=== PATIENT | female | born 1990 | race Caucasian/White ===

== ENCOUNTER → 2017-03-20 | Outpatient (CLI) | payer BC, MEDICAID ==
[~2017-03-20] MED LIST: ACHD5005 PO; CEPH250T; CEPH500C PO; FRS325T PO; HYDR-707 PO; IBP600T1 PO; PREN1TAB38 PO; PREN1TAB39 PO; SULF1TAB35 PO
--- NOTE | 2017-03-20 16:13 | Diagnostic Imaging Report ---
INDICATION: assessment. TECHNIQUE: Multiple real-time grayscale images were obtained over the gravid uterus. COMPARISON: None. FINDINGS: Ultrasonography reveals brower intrauterine gestation in variable presentation. The placenta is anterior without evidence of previa. cardiac activity is present with a rate of 155 beats per minute. No anomalies identified on anatomic survey although the four-chamber heart view is not well demonstrated due to positioning. Cervical length is 5.3 cm. Biometry indicates gestational age of 20 weeks and 4 days. Biometrical measurements are as follows: Biparietal 4.7 cm, age 20 weeks 2 days. Head circumference 17.72 cm, age 20 weeks 2 days. Abdominal circumference 15.54 cm, age 20 weeks 5 days. Femur length 3.36 cm, age 20 weeks 4 days. Sonographic estimate age: 20 weeks 4 days. Sonographic estimated date of delivery: 08/03/2016. Estimated Weight: 363 gm (+/- 53 gm). LMP percentile: 11%. heart rate: 155 beats per minute. number: 1 of 1. IMPRESSION: Essentially unremarkable obstetrical ultrasound. Estimated gestational age is 20 weeks and 4 days. Sonographic EDC based on current measurements is 07/28/2017. Dictated by: Dictated on workstation # [id number]
== END ==
LOC: RAD 15:31
PROVIDERS: ATTEND Obstetrics & Gynecology
DX: Z36 Encounter for antenatal screening of mother (principal); Z3A.20 20 weeks gestation of pregnancy
CPT/HCPCS: 76805

== ENCOUNTER 2017-07-13 13:54 | Outpatient (CLI) | payer MEDICAID ==
[~2017-07-13] VITALS: Ht 160 cm; Wt 78.6 kg
[2017-07-13 14:05] VITALS: BP 117/76
== END 2017-07-13 14:35 | disposition home or self-care (01) ==
LOC: PREOP 13:54
PROVIDERS: ATTEND Obstetrics & Gynecology
DX: Z01.818 Encounter for other preprocedural examination (principal); O34.211 Maternal care for low transverse scar from previous cesarean delivery
CPT/HCPCS: 87081

== ENCOUNTER 2017-07-21 08:00 | Inpatient (IN) | payer BC, MEDICAID ==
[~2017-07-21] VITALS: Ht 160 cm; Wt 74.9 kg
[2017-07-21] MEDS ORDERED: LACTATED RINGERS 1,000 ML IV ONE (10:51)
[2017-07-21 11:00] VITALS: BP 119/79
--- OUTSIDE RECORDS SUMMARY | 2017-07-21 11:06 | XMS REPORT ---
Author Author VALDEZ THOMAS [facility] Address [address] [place] [address] Care Team Providers Care Cd Storage And Materials Make Up Helper Name Role Phone VALDEZ THOMAS Unavailable PROBLEMS Type Condition ICD9-CM Code HER53-XT Code Onset Dates Condition Status SNOMED Code Assessment Dysthymia F34.1 Mar, Active 17559461 ALLERGIES Substance Reaction Event Type Date Status Biaxin Unknown Drug Allergy Mar, Active SOCIAL HISTORY No smoking Hx information available PLAN OF CARE VITAL SIGNS MEDICATIONS No Known Medications RESULTS No Results PROCEDURES Procedure Date Ordered Related Diagnosis Body Site Psych diagnostic evaluation, new patient Apr 13, 2016 IMMUNIZATIONS No Known Immunizations
--- OUTSIDE RECORDS SUMMARY | 2017-07-21 11:06 | XMS REPORT | Continuity of Care Document ---
Author Author [facility] Organization [facility] Address Unknown Phone Unavailable Allergies Active Description Code Type Severity Reaction Onset Reported/Identified Relationship to Patient Clinical Status Yes clarithromycin [id number] Drug Allergy Mild N/A 07/05/2009 Yes Biaxin Drug Allergy 11/05/2012 Yes Biaxin Drug Allergy N/A N/A 11/05/2012 Yes Penicillins [id number] Drug Allergy Unknown N/A 10/19/2014 Medications There is no data. Problems Date Dx Coded Attending Type Code Diagnosis Diagnosed By 11/05/2012 BRAYDON TORREZ ROSI A 640.00 THREATENED 11/05/2012 BRAYDONILIANA TORREZ ROSI A V72.42 TEST POSITIVE RESULT 11/05/2012 BRAYDONILIANA TORREZ, ROSI A 640.00 THREATENED 11/05/2012 BRAYDON PEST CONTROL WORKER HELPER, ROSI A V72.42 TEST POSITIVE RESULT 11/05/2012 640.00 THREATENED 11/05/2012 V72.42 TEST POSITIVE RESULT 11/05/2012 BRAYDON PEST CONTROL WORKER HELPER, ROSI A 640.00 THREATENED 11/05/2012 BRAYDON PEST CONTROL WORKER HELPER, ROSI A V72.42 TEST POSITIVE RESULT 11/05/2012 COTTO DO, MALINDA K 640.00 THREATENED 11/05/2012 COTTO DO, MALINDA K V72.42 TEST POSITIVE RESULT 11/05/2012 COTTO DO, MALINDA K 640.00 THREATENED 11/05/2012 COTTO DO, MALINDA K V72.42 TEST POSITIVE RESULT 11/05/2012 COTTO DO, MALINDA K 640.00 THREATENED 11/05/2012 COTTO DO, MALINDA K V72.42 TEST POSITIVE RESULT 12/20/2012 V22.1 , NORMAL OTHER 12/20/2012 BRAYDONILIANA TORREZ ROSI A V22.1 , NORMAL OTHER 12/20/2012 COTTO DO, MALINDA K V22.1 , NORMAL OTHER 12/20/2012 COTTO DO, MALINDA K V22.1 , NORMAL OTHER 12/20/2012 COTTO , MALINDA K V22.1 , NORMAL OTHER 06/23/2013 BRENNA MONCADA REHAN C Ot 285.1 AC POSTHEMORRHAG ANEMIA 06/23/2013 BRENNA MONCADA REHAN C Ot 288.60 LEUKOCYTOSIS, UNSPECIFIED 06/23/2013 BRENNA MONCADA REHAN C Ot 646.81 PREG COMPL NEC-DELIVERED 06/23/2013 BRENNA MONCADAREHAN C Ot 648.22 ANEMIA-DELIVERED W P/P 06/23/2013 BRENNA MONCADA REHAN C Ot 652.21 BREECH PRESENTAT-DELIVER 06/23/2013 BRENNA MONCADA REHAN C Ot V04.81 ND FOR PROPHYLACTIC VACCIN AND INOCULATI 06/23/2013 BRENNA MONCADAREHAN Ot V27.0 DELIVER-SINGLE LIVEBORN 09/05/2013 ROSI BRYSON APRN A V25.09 CONTRACEPTIVE COUNSELING - GENERAL 09/05/2013 ROSI BRYSON APRN V25.9 CONTRACEPTION MANAGEMENT 09/05/2013 KIRTI MONCADA MALINDA K V25.09 CONTRACEPTIVE COUNSELING - GENERAL 09/05/2013 COTTO DO, MALINDA K V25.9 CONTRACEPTION MANAGEMENT 09/05/2013 COTTO DO, MALINDA K V25.09 CONTRACEPTIVE COUNSELING - GENERAL 09/05/2013 COTTO DO, MALINDA K V25.9 CONTRACEPTION MANAGEMENT 09/05/2013 COTTO DO, MALINDA K V25.09 CONTRACEPTIVE COUNSELING - GENERAL 09/05/2013 COTTO DO, MALINDA K V25.9 CONTRACEPTION MANAGEMENT 11/28/2013 COTTO DO MALINDA K 692.2 CONTACT DERMATITIS AND OTHER ECZEMA DUE TO SOLVENTS 11/28/2013 COTTO DO, MALINDA K V01.6 CONTACT WITH OR EXPOSURE TO VENEREAL DISEASES 11/28/2013 COTTO DO, MALINDA K V74.5 STD SCREEN 11/28/2013 COTTO DO, MALINDA K 692.2 CONTACT DERMATITIS AND OTHER ECZEMA DUE TO SOLVENTS 11/28/2013 COTTO DO, MALIDNA K V01.6 CONTACT WITH OR EXPOSURE TO VENEREAL DISEASES 11/28/2013 COTTO DO, MALINDA K V74.5 STD SCREEN 11/28/2013 COTTO DO, MALINDA K 692.2 CONTACT DERMATITIS AND OTHER ECZEMA DUE TO SOLVENTS 11/28/2013 COTTO DO, MALINDA K V01.6 CONTACT WITH OR EXPOSURE TO VENEREAL DISEASES 11/28/2013 KIRTI MONCADAMALINDA V74.5 STD SCREEN 03/01/2014 COTTO MALINDA V74.1 TB SCREENING 03/01/2014 KIRTI MONCADAMALINDA V74.1 TB SCREENING 10/19/2014 ROSI BRYSON APRN Ot V22.1 10/19/2014 SABINE HO DO Ot 462 ACUTE PHARYNGITIS 10/19/2014 SABINE HO DO Ot 780.60 FEVER, UNSPECIFIED 10/19/2014 ROSI BRYSON APRN Ot V22.1 10/25/2014 MALINDA COTTO DO 461.9 SINUSITIS ACUTE 03/20/2017 ROSI BRYSON APRN Ot V22.1 [facility] OT NORMAL PREG 04/04/2017 REHAN CEJA DO, Ot Z36 ENCOUNTER FOR SCREENING OF MOT 04/04/2017 REHAN CEJA DO, Ot Z3A.20 20 WEEKS GESTATION OF Procedures Code Description [place] [address] PAP SMEAR 12/13/2011 13094 URINE TEST (IN- HOUSE) 11/05/2012 60318 HCG QUANTITATIVE 11/06/2012 97272 ROUTINE VENIPUNCTURE 11/07/2012 15116 HCG QUANTITATIVE 11/08/2012 63834 BLOOD TYPE/Rh FACTOR 11/08/2012 42667 ROUTINE VENIPUNCTURE 12/20/2012 63645 CBC 12/20/2012 72231 TSH 12/20/2012 72330 BLOOD TYPE/Rh FACTOR 12/21/2012 7366129 ANTIBODY SCREEN (RESULT ONLY) 12/21/2012 79226 HIV ANTIBODIES (RML) 12/21/2012 28835 RUBELLA ANTIBODY, IGG 12/21/2012 83353 CULTURE URINE 12/22/2012 57403 US OB - EARLY <14 WEEKS 12/26/2012 82850 SYPHILLIS-STATE [facility] 12/26/2012 63706 ANTIBODY SCREEN (order) 12/26/2012 66021 HEP B SURFACE ANTIGEN (STATE ) 12/26/2012 74.1 LOW CERVICAL 06/20/2013 J1050 DEPO PROVERA 09/05/2013 10493 THERAPUTIC INJ SQ/IM 09/05/2013 39064 TEST, URINE (IN- HOUSE) 09/05/2013 60115 ROUTINE VENIPUNCTURE 11/28/2013 97626 THERAPUTIC INJ SQ/IM 11/28/2013 J1030 DEPO MEDROL 40 MG INJ 11/28/2013 J1050 DEPO PROVERA 11/28/2013 10697 TEST, URINE (IN- HOUSE) 11/28/2013 27406 HEP C ANTIBODY (RML) 11/29/2013 13711 SYPHILLIS-[facility] 11/30/2013 11912 HIV (STATE LAB) 11/30/2013 28840 TB TEST INTRADERMAL 03/01/2014 Results Test Result Range Methicillin resistant Staphylococcus aureus (MRSA) screening culture - 14:40 Methicillin resistant Staphylococcus aureus (MRSA) screening culture NEG NRG Encounters ACCT No. Visit Date/Time Discharge Status Pt. Type Provider Facility Loc./Unit Complaint [id number] 07/13/2017 13:54:00 07/13/2017 14:35:00 DIS Outpatient REHAN CEJA DO [facility] PREOP REPEAT SECTION [id number] 03/20/2017 15:31:00 03/20/2017 23:59:59 CLS Outpatient RHEAN CEJA DO [facility] RAD Z34.92 [id number] 10/19/2014 14:39:00 10/19/2014 16:40:00 DIS Emergency SABINE HO DO [facility] ER FEVER [id number] 06/20/2013 18:53:00 06/23/2013 14:15:00 DIS Inpatient REHAN CEJA DO [facility] WS C SECTION [id number] 12/28/2012 12:19:00 12/28/2012 23:59:59 CLS Outpatient ROSI BRYSON APRN [facility] RAD DATING [id number] 07/21/2017 08:00:00 PEN Preadmit REHAN CEJA DO TERM WITH PREVIOUS SECTION [id number] 10/25/2014 11:37:00 10/25/2014 23:59:59 CLS Outpatient MALINDA COTTO DO [id number] 03/01/2014 09:44:00 03/01/2014 23:59:59 CLS Outpatient MALINDA COTTO DO [id number] 11/28/2013 15:39:00 11/28/2013 23:59:59 CLS Outpatient MALINDA COTTO DO [id number] 09/05/2013 17:29:00 09/05/2013 23:59:59 CLS Outpatient ROSI BRYSON APRN [id number] 11/07/2012 16:34:00 11/07/2012 23:59:59 [facility] Outpatient ROSI BRYSON APRN [id number] 11/05/2012 16:02:17 11/05/2012 23:59:59 CLS Outpatient ROSI BRYSON APRN [id number] 12/20/2012 11:40:00 Document Registration
--- OUTSIDE RECORDS SUMMARY | 2017-07-21 11:06 | XMS REPORT ---
Author Author MALINDA COTTO [facility] Address [address] [place] [address] Care Team Providers Care Drywall Taper Helper Name Role Phone MALINDA COTTO Unavailable PROBLEMS Unknown Problems ALLERGIES No Information SOCIAL HISTORY Never Assessed PLAN OF CARE VITAL SIGNS MEDICATIONS Unknown Medications RESULTS No Results PROCEDURES Procedure Date Ordered Result Body Site URINE TEST December 27, 2016 IMMUNIZATIONS No Known Immunizations MEDICAL (GENERAL) HISTORY Type Description Date Surgical History section x1
--- OUTSIDE RECORDS SUMMARY | 2017-07-21 11:06 | XMS REPORT ---
Author Author SABINE GUO Organization [facility] Address [address] [place] [address] Care Team Providers Care Geometry Teacher Name Role Phone SABINE GUO Unavailable PROBLEMS Unknown Problems ALLERGIES Substance Reaction Event Type Date Status Biaxin Unknown Drug Allergy Jul, Active SOCIAL HISTORY No smoking Hx information available PLAN OF CARE VITAL SIGNS Height 63 in 2016-08-10 Weight 152.0 lbs 2016-08-10 Temperature 97.9 degrees Fahrenheit 2016-08-10 Heart Rate 100 bpm 2016-08-10 Respiratory Rate 22 2016-08-10 BMI 26.92 kg/m2 2016-08-10 Blood pressure systolic 128 mmHg 2016-08-10 Blood pressure diastolic 90 mmHg 2016-08-10 MEDICATIONS Medication Instructions Dosage Frequency Start Date End Date Duration Status Macrobid 100 MG Orally every 12 hrs 1 capsule with food 12h Jul, Jul, 7 day(s) Active RESULTS Name Result Date Reference Range UA LONG DIP (IN HOUSE) 2016-08-10 Lot # [id number] Exp date 2017-08-30 Clarity clear Color yellow Odor none GLU negative KETIH negative KET negative SG 1.020 BLO trace-intact pH 7.0 Protein negative URO 0.2 NIT negative JIGNESH trace Lot # [id number] Exp date 2017-08 PROCEDURES Procedure Date Ordered Related Diagnosis Body Site Office Visit, Est Pt., Level 3 Aug 10, 2016 URINALYSIS, AUTO, W/O SCOPE Aug 10, 2016 IMMUNIZATIONS No Known Immunizations
--- OUTSIDE RECORDS SUMMARY | 2017-07-21 11:06 | XMS REPORT ---
Author Author LIDIA MCNULTY [facility] eClinical[employer] Address Unknown Phone Unavailable Care Team Providers Care Servicenow Administrator Name Role Phone LIDIA MCNULTY CP Unavailable Allergies, Adverse Reactions, Alerts Substance Reaction Event Type Biaxin Info Not Available Drug Allergy Problems Problem Type Condition Code Onset Dates Condition Status Assessment Suprapubic pain R10.2 Active Assessment Urinary frequency R35.0 Active Assessment Dysuria R30.0 Active Assessment Hematuria, unspecified R31.9 Active Assessment Unprotected sexual intercourse Z72.51 Active Medications Medication Code System Code Instructions Start Date End Date Status Dosage Keflex [facility] [address]-45 500 MG Orally Twice a day Jul 01, 2015 Jul 11, 2015 1 capsule Procedures Procedure Coding System Code Date URINALYSIS, AUTO, W/O SCOPE CPT-4 38025 Jul 01, 2015 URINE TEST CPT-4 34069 Jul 01, 2015 URINE CULTURE/COLONY COUNT CPT-4 90770 Jul 01, 2015 Office Visit, Est Pt., Level 3 CPT-4 49840 Jul 01, 2015 Vital Signs Date/Time: Jul 01, 2015 Temperature 98.7 F Weight 143.3 lbs Height 63 in BMI 25.38 Index Blood Pressure Diastolic 74 mmHg Blood Pressure Systolic 116 mmHg Cardiac Monitoring Heart Rate 76 bpm Results No Known Results Summary Purpose eClinicalWorks Submission
--- OUTSIDE RECORDS SUMMARY | 2017-07-21 11:06 | XMS REPORT ---
Author Author HARPREET SAUNDERS [facility] e[employer] Address Unknown Phone Unavailable Care Team Providers Care Airplane Dispatcher Name Role Phone HARPREET SAUNDERS Unavailable Allergies No Known Allergies Problems Problem Type Condition Code Onset Dates Condition Status Assessment Encounter for immunization Z23 Active Medications No Known Medications Procedures Procedure Coding System Code Date SINGLE IMMUNIZATION ADMIN CPT-4 30343 Jun 03, 2015 FLUARIX QUAD (3 & UP)-GSK-2014 CPT-4 38315 Jun 03, 2015 Results No Known Results Immunizations Vaccine Administration Date FLUARIX QUAD (3 & UP)-GSK-2014Jun 03, 2015 Summary Purpose eClinicalWorks Submission
[2017-07-21] MEDS: LACTATED RINGERS 1,000 ML IV PRN ×2 (11:09→12:39)
[2017-07-21] MEDS ORDERED: CITRIC ACID/SOB CIT (BICITRA) 30 ML UDC PO ONE (11:15)
[2017-07-21] MEDS ORDERED: FAMOTIDINE 20MG/2ML IV (PEPCID) IV ONE (11:15)
[2017-07-21] MEDS ORDERED: METOCLOPRAMIDE INJ 10 MG/2 ML (REGLAN) IV ONE (11:15)
[2017-07-21] MEDS ORDERED: ceFAZolin INJECTION 1,000 MG in NS (IVPB) 50 ML IV ONE (11:15)
[2017-07-21] MEDS ORDERED: metroNIDAZOLE 500MG/100ML IVPB 100 ML IV ONE (11:15)
[2017-07-21] MEDS ORDERED: CATHETER FLUSH 10 ML SYR IV PRN (11:15)
[2017-07-21 11:37] LABS: BASOPHILS % (AUTO) 0 % (0-10); EOSINOPHILS # (AUTO) 0.1 10^3/uL (0.0-0.3); EOSINOPHILS % (AUTO) 2 % (0-10); LYMPHOCYTES # (AUTO) 2.3 X 10^3 (1.0-4.0); LYMPHOCYTES % (AUTO) 28 % (12-44); MEAN CORPUSCULAR HEMOGLOBIN 29 PG (25-34); MEAN CORPUSCULAR HGB CONC 33 G/DL (32-36); MEAN CORPUSCULAR VOLUME 88 FL (80-99); MEAN PLATELET VOLUME 10.6 FL (7.4-10.4); MONOCYTES # (AUTO) 0.5 X 10^3 (0.0-1.0); MONOCYTES % (AUTO) 6 % (0-12); NEUTROPHILS # (AUTO) 5.1 X 10^3 (1.8-7.8); NEUTROPHILS % (AUTO) 64 % (42-75); PLATELET COUNT 209 10^3/uL (130-400); RED BLOOD COUNT 4.12 10^6/uL (4.35-5.85); RED CELL DISTRIBUTION WIDTH 14.8 % (10.0-14.5)
[2017-07-21 11:37] LABS: BILIRUBIN,URINE NEGATIVE (NEGATIVE); KETONES,URINE NEGATIVE (NEGATIVE); LEUKOCYTE ESTERASE ,URINE 3+ (NEGATIVE); NITRITE,URINE NEGATIVE (NEGATIVE); PH,URINE 7 (5-9); PROTEIN,URINE NEGATIVE (NEGATIVE); UROBILINOGEN,URINE NORMAL (NORMAL)
[2017-07-21 12:35] VITALS: BP 117/73
[2017-07-21] MEDS ORDERED: ceFAZolin 1,000 MG (ANCEF) VIAL ONE (12:44)
[2017-07-21] MEDS ORDERED: NS (IVPB) 50 ML ONE (12:45)
[2017-07-21] MEDS ORDERED: fentaNYL INJECTION 250 MCG/5 ML AMP ONE (12:45)
--- NOTE | 2017-07-21 12:59 | Progress Note-Pre Operative ---
Pre-Operative Progress Note H&P Reviewed The H&P was reviewed, patient examined and no changes noted. Date Seen by Provider: Jul 21, 2017 Time Seen by Provider: 12:50 Date H&P Reviewed: Jul 21, 2017 Time H&P Reviewed: 12:40 Pre-Operative Diagnosis: Previous section, ovarian cancer risk reduction REHAN CEJA DO Jul 21, 2017 12:59
[2017-07-21] MEDS ORDERED: MEPERIDINE (DEMEROL) INJ 50 MG/ML ONE (13:02)
[2017-07-21] MEDS ORDERED: KETOROLAC 30 MG/ML VIAL ONE (13:02)
[2017-07-21 14:25] VITALS: BP 117/74
[2017-07-21] MEDS ORDERED: METHYLERGONOVINE 0.2 MG/ML (METHERGINE) AMP ONE (14:32)
[2017-07-21] MEDS ORDERED: OXYTOCIN/NORMAL SALINE 500 ML IV SCH (14:50)
[2017-07-21] MEDS ORDERED: MEASLES,MUMPS,RUBELLA 1 EA INJ SC SCH (15:00)
[2017-07-21] MEDS ORDERED: TETANUS,DIPTH,PERTUSS P/F (BOOSTRIX) 0.5 ML VIAL IM SCH (15:00)
[2017-07-21] MEDS ORDERED: HYDROmorphone (DILAUDID) 2 MG/ML VIAL IVP PRN (15:00)
[2017-07-21] MEDS ORDERED: ONDANSETRON 4 MG/2 ML (SDV) Z0FRAN ONE (15:20)
[2017-07-21] MEDS ORDERED: KETOROLAC 30 MG/ML VIAL IVP ONE (15:50)
--- NOTE | 2017-07-21 15:56 | Operative Report ---
Operative Report Date of Procedure/Surgery Jul 21, 2017 Surgeon (s) REHAN CEJA DO Supervisor Customer Complaint Service (s): COLLEEN Gutierrez and COLLEEN Harvey Post-Operative Diagnosis Same, previous section, breech, ovarian cancer risk reduction Procedure Performed Repeat cesaeran section and risk reducing salpingecgomy Description of Procedure Anesthesia Type: Spinal Estimated blood loss (mL): 600 Specimen(s) collected/removed bilateral tubes Description of the Procedure The patient was seen in pre-op and the procedure was discussed with the patient in full, including the risks, benefits, and alternatives. All questions were answered. The patient was taken to the operating room and a time out was performed, verifying patient and procedure. After spinal anesthesia was placed by our anesthesia colleagues, the patient was placed in the dorsal supine with leftward tilt for uterine displacement.~ Her abdomen was then prepped and draped in the typical sterile fashion. A Pfannenstiel skin incision was made using a scalpel and carried down through the underlying fascia. The fascia was incised in the midline and tented up using Erik clamps. On both the inferior and superior fascia side the rectus muscle was dissected off bluntly and sharply using Padilla scissors. The peritoneum was identified and entered bluntly in the midline. This was then stretched laterally using manual strength. After entering the abdominal cavity and confirming lack of intraperitoneal adhesions, a large Yobani retractor was placed and the lower uterine segment was visualized. A bladder flap was created with the use of Metzenbaum scissors.~ A scalpel was utilized to make a low transverse uterine incision. Amniotomy was performed with an Allis clamp with return of clear fluid. The baby was noted to be in complete breech presentation. The 's feet were grasped and brought to the level of the incision. I delivered the baby to the level of the scapulae bilaterally and then rotated the baby forward. The head was delivered with the Mariceau-Smellie -Veit maneuver. The baby cried at the delivery of the head. Mouth and nares were suctioned with bulb suction. After the umbilical cord was clamped and cut by the father, the was handed off to the mother and pediatric staff. A sample of cord blood was then obtained. The placenta was delivered intact via uterine massage. The uterine incision was closed using 0 Vicryl in a running locked fashion. A second imbricated layer was placed using 0 Vicryl in a running fashion as well. The bilateral tubes and ovaries appeared normal. Each tube was elevated with deonna clamps and then a salpingectomy was performed in with the Ligasure incising and cauterizing along the mesosalpinx. There was good hemostasis. The abdominal gutters were cleared of all clots and debris. A final check of the uterine incision showed it to be hemostatic. The peritoneum was closed using 3-0 Vicryl in a running fashion. The muscles were brought together was a looose figure of eight stitch of 3-0 Vicryl. The fascia was closed with 0 Vicryl in a running fashion. The subcutaneous space was hemostatic, and irrigated. The subcutaneous space was closed with 3-0 Vicryl in several single interrupted stitches. The skin was then closed using 4-0 Monocryl in a running subcuticular fashion. The skin edges were reapproximated together and were hemostatic. A pressure dressing was applied. All sponge, lap and needle counts were correct at the end of the procedure per nursing. Findings of the Procedure complete breech presentation viable female Apgars 8/9 weight 8#14 oz. Allergies and Home Medications Allergies Coded Allergies: clarithromycin (Unverified Allergy, Mild, 07/05/09) Penicillins (Unverified Allergy, Unknown, 10/19/14) Home Medications Cephalexin Monohydrate 500 Mg Capsule, 1 EACH PO TID, #30 Ref 0 Prescribed by: SABINE HO on 10/19/14 1633 REHAN CEJA DO Jul 21, 2017 15:56
[2017-07-21] MEDS ORDERED: DOCU100C37 PO (16:06)
[2017-07-21] MEDS ORDERED: IBUP-1773 PO (16:06)
[2017-07-21] MEDS ORDERED: Hydrocodone Bit/Acetaminophen PO (16:06)
[2017-07-21] MEDS ORDERED: FERR-74 PO (16:06)
--- NOTE | 2017-07-21 16:07 | Discharge Inst-Women's Service ---
Discharge Inst-Women's Serv Depart Medication/Instructions New, Converted or Re-Newed RX: RX on Chart Instructions no lifting over 25 lbs no driving for 1 week Final Diagnosis breech presentation previous section GBS + Consults/Follow Up Additional Follow Up: Yes (1-2 weeks with Gale /ford 6 weeks with [facility]) Activity Activity: Activity as Tolerated Driving Instructions: No Driving for 1 Week NO SMOKING: NO SMOKING Nothing Inside Vagina: No Douching, No [place], No Tampons Diet Discharge Diet: No Restrictions Symptoms to Report to : Bleeding Excessive, Pain Increased, Fever Over 101 Degrees F, Vaginal Bleeding Increase, Cramps in Feet or Legs, Vaginal Discharge Foul For Any Problems or Questions: Contact Your Physician Skin/Wound Care Infection Signs and Symptoms: Increased Redness, Foul Odor of Wound, Increased Drainage, Skin Itchy or Has a Rash, Increased Swelling, Temperature Above 101 F Operative Area Clean and Dry: Keep Incision Clean/Dry Stitches/[place]/Dermabond: Dermabond Bathing Instructions: REHAN Rondon DO Jul 21, 2017 16:07
[2017-07-21] MEDS ORDERED: ONDANSETRON 4 MG/2 ML (SDV) Z0FRAN IV PRN (16:15)
[2017-07-21] MEDS ORDERED: NALOXONE 0.4 MG/ML 1 ML (NARCAN) VIAL IV PRN ×2 (16:15)
[2017-07-21] MEDS ORDERED: METOCLOPRAMIDE INJ 10 MG/2 ML (REGLAN) IV PRN (16:15)
[2017-07-21] MEDS ORDERED: diphenhydrAMINE 50 MG/ML INJ (BENADRYL) IV PRN (16:15)
[2017-07-21] MEDS ORDERED: morphine INJ 10 MG/ML 1ML (SYR OR VIAL) IVP PRN (16:15)
[2017-07-21 17:00] VITALS: BP 120/75
[2017-07-21] MEDS ORDERED: INFLUENZA TRIvalent 2017-2018 0.5 ML/45 MCG SYR IM ONE (20:30)
[2017-07-21] MEDS: DOCUSATE SODIUM 100 MG (COLACE) CAP PO SCH (20:40)
[2017-07-21] MEDS: HYDROcodone/APAP 5 MG/325 MG (LORTAB) TAB PO PRN (20:40)
[2017-07-21 20:45] VITALS: BP 119/75
[2017-07-21] MEDS ORDERED: KETOROLAC 30 MG/ML VIAL IVP SCH (22:00)
[2017-07-21] MEDS ORDERED: CATHETER FLUSH 10 ML SYR IV SCH (22:00)
[2017-07-22 00:50] VITALS: BP 124/82
[2017-07-22 04:00] VITALS: BP 124/79
[2017-07-22 07:00] LABS: BASOPHILS % (AUTO) 0 % (0-10); EOSINOPHILS # (AUTO) 0.1 10^3/uL (0.0-0.3); EOSINOPHILS % (AUTO) 1 % (0-10); LYMPHOCYTES # (AUTO) 1.8 X 10^3 (1.0-4.0); LYMPHOCYTES % (AUTO) 16 % (12-44); MEAN CORPUSCULAR HEMOGLOBIN 29 PG (25-34); MEAN CORPUSCULAR HGB CONC 32 G/DL (32-36); MEAN CORPUSCULAR VOLUME 89 FL (80-99); MEAN PLATELET VOLUME 10.5 FL (7.4-10.4); MONOCYTES # (AUTO) 0.9 X 10^3 (0.0-1.0); MONOCYTES % (AUTO) 8 % (0-12); NEUTROPHILS # (AUTO) 8.7 X 10^3 (1.8-7.8); NEUTROPHILS % (AUTO) 76 % (42-75); PLATELET COUNT 167 10^3/uL (130-400); RED BLOOD COUNT 3.33 10^6/uL (4.35-5.85); RED CELL DISTRIBUTION WIDTH 14.7 % (10.0-14.5); WHITE BLOOD COUNT 11.5 10^3/uL (4.3-11.0)
[2017-07-22] MEDS ORDERED: FERROUS SULF 325 MG (IRON) TAB PO SCH (07:00)
[2017-07-22] MEDS: DOCUSATE SODIUM 100 MG (COLACE) CAP PO SCH (08:11)
[2017-07-22] MEDS: HYDROcodone/APAP 5 MG/325 MG (LORTAB) TAB PO PRN ×2 (08:12→12:46)
[2017-07-22 08:18] VITALS: BP 106/69
--- NOTE | 2017-07-22 09:46 | Progress Note-Standard ---
Standard Progress Note Progress Notes/Assess & Plan Date Seen by Provider: Jul 22, 2017 Time Seen by Provider: 09:15 Progress/Assessment & Plan Patient doing well postop day 1 repeat low transverse section. The patient also underwent bilateral risk reducing salpingectomy. She reports pain is somewhat controlled she is ambulating and voiding freely without difficulty. Lochia is moderate to light Vital Sign - Last 24 Hours 07/21/17 07/21/17 07/21/17 07/21/17 11:00 12:35 14:25 17:00 Temp 97.5 97.3 Pulse 115 86 88 85 Resp 20 18 18 18 B/P (MAP) 119/79 (92) 117/73 (88) 117/74 (88) 120/75 (90) O2 Delivery Room Air Room Air Room Air Room Air 07/21/17 07/22/17 07/22/17 07/22/17 20:45 00:50 04:00 08:18 Temp 98.1 97.7 98.2 98.5 Pulse 91 87 88 81 Resp 18 B/P (MAP) 119/75 (90) 124/82 (96) 124/79 (94) 106/69 (81) Pulse Ox 97 98 98 96 O2 Delivery Room Air Room Air Room Air Room Air Intake and Output 07/21/17 07/21/17 07/22/17 15:00 23:00 07:00 Intake Total 150 ml 240 ml 1450 ml Output Total 150 ml 1900 ml Balance 150 ml 90 ml -450 ml Incision: Clean, dry, intact Laboratory Tests Test 07/21/17 11:00 07/21/17 11:05 07/22/17 06:29 Range/Units Urine Color YELLOW Urine Clarity CLEAR Urine pH 7 5-9 Urine Specific [place] 1.010 L 1.016-1.022 Urine Protein NEGATIVE NEGATIVE Urine Glucose (UA) NEGATIVE NEGATIVE Urine Ketones NEGATIVE NEGATIVE Urine Nitrite NEGATIVE NEGATIVE Urine Bilirubin NEGATIVE NEGATIVE Urine Urobilinogen NORMAL NORMAL MG/DL Urine Leukocyte Esterase 3+ H NEGATIVE Urine RBC (Auto) NEGATIVE NEGATIVE Urine RBC NONE /HPF Urine WBC NONE /HPF Urine Squamous Epithelial Cells 10-25 H /HPF Urine Crystals NONE /LPF Urine Bacteria TRACE /HPF Urine Casts NONE /LPF Urine Mucus SMALL H /LPF Urine Culture Indicated NO White Blood Count 8.0 11.5 H 4.3-11.0 10^3/uL Red Blood Count 4.12 L 3.33 L 4.35-5.85 10^6/uL Hemoglobin 11.9 9.6 L 11.5-16.0 G/DL Hematocrit 36 30 L 35-52 % Mean Corpuscular Volume 88 89 80-99 FL Mean Corpuscular Hemoglobin 29 29 25-34 PG Mean Corpuscular Hemoglobin Concent 33 32 32-36 G/DL Red Cell Distribution Width 14.8 H 14.7 H 10.0-14.5 % Platelet Count 209 167 130-400 10^3/uL Mean Platelet Volume 10.6 H 10.5 H 7.4-10.4 FL Neutrophils (%) (Auto) 64 76 H 42-75 % Lymphocytes (%) (Auto) 28 16 12-44 % Monocytes (%) (Auto) 6 8 0-12 % Eosinophils (%) (Auto) 2 1 0-10 % Basophils (%) (Auto) 0 0 0-10 % Neutrophils # (Auto) 5.1 8.7 H 1.8-7.8 X 10^3 Lymphocytes # (Auto) 2.3 1.8 1.0-4.0 X 10^3 Monocytes # (Auto) 0.5 0.9 0.0-1.0 X 10^3 Eosinophils # (Auto) 0.1 0.1 0.0-0.3 10^3/uL Basophils # (Auto) 0.0 0.0 0.0-0.1 10^3/uL Diagnosis: Postop day 1 repeat low transverse section with bilateral risk reducing salpingectomy Acute blood loss anemia Plan: Replace iron with oral supplementation Routine postoperative care Plan for discharge tomorrow KURT MCCOY DO Jul 22, 2017 9:46 am
[2017-07-22] MEDS ORDERED: IBUPROFEN 600 MG (MOTRIN) TAB PO ONE (11:27)
[2017-07-22 12:11] VITALS: BP 117/80
--- NOTE | 2017-07-22 15:00 | Anesthesia-Regional Post-Op ---
Regional Patient Condition Mental Status: Alert, Oriented x3 Circulation: Same as Pre-Op Headache: Absent Sensation: Full Recovery Motor Block: Absent Post Op Complications Complications None Follow Up Care/Instructions Patient Instructions None needed. Anesthesia/Patient Condition Patient is doing well, no complaints, stable vital signs, no apparent adverse anesthesia problems. No complications reported per nursing. CÉSAR PARKINSON CRNA Jul 22, 2017 15:00
[2017-07-22] MEDS ORDERED: INFLUENZA TRIvalent 2017-2018 0.5 ML/45 MCG SYR IM ONE (15:14)
[2017-07-22] MEDS ORDERED: IBUPROFEN 600 MG (MOTRIN) TAB PO SCH (16:00)
== END 2017-07-22 15:55 | disposition home or self-care (01) | DRG 765 ==
LOC: LDRP 10:50 → 3RD 15:38 → LDRP 15:38
PROVIDERS: ADMIT Obstetrics & Gynecology; ATTEND Obstetrics & Gynecology
PROC: 0UT70ZZ Resection of Bilateral Fallopian Tubes, Open Approach (ICD-10-PCS; 2017-07-21)
PROC: 10D00Z1 Extraction of Products of Conception, Low, Open Approach (ICD-10-PCS; principal; 2017-07-21 13:00)
DX: O34.211 Maternal care for low transverse scar from previous cesarean delivery (principal); O32.1XX0 Maternal care for breech presentation, not applicable or unspecified; O99.824 Streptococcus B carrier state complicating childbirth; O90.81 Anemia of the puerperium; D62 Acute posthemorrhagic anemia; Z37.0 Single live birth; Z3A.39 39 weeks gestation of pregnancy; Z40.03 Encounter for prophylactic removal of fallopian tube(s); Z23 Encounter for immunization
CPT/HCPCS: 36415; 81000; 85025; 86850; 86900; 86901; 90715; 94664

== ENCOUNTER 2022-05-03 05:32 | Outpatient (CLI) | payer BC, MEDICAID ==
[~2022-05-03] VITALS: Ht 160.2 cm; Wt 70.9 kg
[~2022-05-03 05:32] MED LIST changes: +DOCU100C37 PO; +FERR325T18 PO; +Hydrocodone Bit/Acetaminophen PO; +IBUP-1773 PO
[2022-05-03] MEDS ORDERED: ACET325T38 PO (14:48)
== END 2022-05-03 15:01 | disposition home or self-care (01) ==
LOC: PREOP 05:32
PROVIDERS: ATTEND Surgery
DX: Z01.818 Encounter for other preprocedural examination (principal)

== ENCOUNTER → 2022-05-05 | Outpatient (CLI) | payer BC ==
[~2022-05-05] MED LIST changes: +ACET325T38 PO
--- NOTE | 2022-05-05 16:32 | Diagnostic Imaging Report ---
INDICATION: Palpable lump in the right axilla as well as the right breast. Sonographic interrogation of the area of palpable abnormality right breast does confirm a lobulated hypoechoic solid appearing mass at the 12:00 location, 4 to 5 cm from the nipple measuring 1.3 x 1.4 x 1.4 cm. No definite internal vascularity is seen. This is concerning for a breast neoplasm. Sonographic interrogation of the right axilla does show an enlarged right axillary lymph node measuring 3.4 x 1.8 x 3.5 cm. No other abnormalities are seen. IMPRESSION: BI-RADS Category 4 Suspicious lobulated solid mass at the 12:00 location of the right breast, 4 to 5 cm from the nipple as well as enlarged right axillary lymph node. Findings are concerning for a small breast neoplasm with metastatic right axillary lymph node. Tissue sampling of the breast lesion and axillary lymph node is recommended. Both of these would be amenable to ultrasound-guided biopsy. Results were discussed with Dr. Miranda prior to this dictation. Patient is scheduled for biopsy tomorrow. ACR BI-RADS Category 4: Suspicious abnormality. Result letter will be mailed to the patient. Note: At least 10% of breast cancer is not imaged by mammography. Dictated by: Dictated on workstation # [id number]
== END ==
LOC: RAD 15:30
PROVIDERS: ATTEND Surgery
DX: N63.15 Unspecified lump in the right breast, overlapping quadrants (principal); N63.31 Unspecified lump in axillary tail of the right breast

== ENCOUNTER → 2022-05-06 | Day surgery (SDC) | payer BC, MEDICAID ==
[~2022-05-06] VITALS: Ht 160 cm; Wt 69.1 kg
[~2022-05-06] MED LIST changes: +LIDOCAINE 1% INJ 10 ML VIAL INJ ONE
--- NOTE | 2022-05-06 12:02 | Diagnostic Imaging Report ---
INDICATION: Abnormal right breast ultrasound. TECHNIQUE: 2D and 3D bilateral diagnostic mammography was performed with CAD. COMPARISON: No prior mammograms are available for comparison. FINDINGS: Both breasts are heterogeneously dense, limiting the sensitivity of mammography. A lobulated mass in the upper right breast at mid to posterior depth is noted, corresponding to the abnormality noted on yesterday's ultrasound. No other masses are seen. There are some associated microcalcifications within and adjacent to the lobulated mass in the upper right breast. The left breast is unremarkable. The axillae are unremarkable. IMPRESSION: Lobulated mass at the 12 o'clock location of the right breast at posterior depth with associated microcalcifications. This does correspond to the sonographic abnormality and remains suspicious for breast neoplasm. No other breast lesions are detected. An ultrasound-guided biopsy is recommended and will be performed today. ACR BI-RADS Category 0: Incomplete. (Needs additional imaging evaluation). Result letter will be mailed to the patient. Note: At least 10% of breast cancer is not imaged by mammography. Dictated by: Dictated on workstation # [id number]
--- NOTE | 2022-05-06 13:21 | Diagnostic Imaging Report ---
INDICATION: Right breast mass. Patient presents for ultrasound guided biopsy. FINDINGS: The patient was brought to the sonographic suite and placed on the table in the supine position. Ultrasound imaging of the right breast was performed to evaluate for an appropriate entry site. The right breast was then prepped and draped in the usual sterile fashion. A small amount of 1% lidocaine was utilized for local anesthesia. Four core biopsies of the hypoechoic mass at the 12 o'clock location of the right breast were obtained with a 14-gauge Achieve needle. A marker clip was then deployed. Hemostasis was obtained using manual compression. The patient tolerated the procedure well. IMPRESSION: Successful ultrasound guided core biopsy of the hypoechoic solid mass at the 12 o'clock location of the right breast 4 to 5 cm from the nipple. Pathology results are currently pending. Dictated by: Dictated on workstation # [id number]
--- NOTE | 2022-05-06 13:23 | Diagnostic Imaging Report ---
INDICATION: Enlarged right axillary lymph node. Patient presents for ultrasound-guided biopsy. DETAILS OF THE PROCEDURE: The patient was brought to the sonographic suite and placed on the table in the supine position. Ultrasound imaging over the right axilla was performed to evaluate for an appropriate entry site. The right axilla was then prepped and draped in the usual sterile fashion. A small amount of 1% lidocaine was utilized for local anesthesia. Three core biopsies of the enlarged right axillary lymph node were obtained utilizing a 14-gauge Achieve needle. A marker clip was then deployed. Hemostasis was obtained using manual compression. The patient tolerated the procedure well and was sent for a post procedure mammogram in satisfactory condition. IMPRESSION: Successful ultrasound-guided core biopsy of an enlarged right axillary lymph node. Pathology results are currently pending. Dictated by: Dictated on workstation # [id number]
--- NOTE | 2022-05-06 13:28 | Diagnostic Imaging Report ---
Indication: Right breast mass and an enlarged right axillary lymph node. Patient is status post ultrasound-guided biopsy. Unilateral right 2-D CC and ML mammography was performed after patient underwent ultrasound-guided biopsy of the mass at the 12:00 location of the right breast as well as ultrasound guided biopsy of the enlarged right axillary lymph node. A marker clip is noted adjacent to the mass in the 12:00 location of the right breast. The enlarged axillary lymph node was not included on this study. IMPRESSION: Marker clip placement, as described. Patient is status post ultrasound-guided right breast biopsy. Dictated by: Dictated on workstation # [id number]
== END ==
LOC: SDC 09:35
PROVIDERS: ATTEND Surgery
DX: C50.911 Malignant neoplasm of unspecified site of right female breast (principal); C77.3 Secondary and unspecified malignant neoplasm of axilla and upper limb lymph nodes; Z17.1 Estrogen receptor negative status [ER-]
CPT/HCPCS: 19083; 76942; 77065; 77066; G0279 ×2; 77062

== ENCOUNTER 2022-05-13 05:29 | Outpatient (CLI) | payer BC ==
[~2022-05-13 05:29] MED LIST changes: -LIDOCAINE 1% INJ 10 ML VIAL INJ ONE
== END 2022-05-13 11:40 ==
LOC: PREOP 05:29
PROVIDERS: ATTEND Surgery
DX: Z01.818 Encounter for other preprocedural examination (principal)

== ENCOUNTER 2022-05-18 09:37 | Day surgery (SDC) | payer BC ==
[2022-05-18] VITALS (7 sets, daily range): BP systolic 101–122; BP diastolic 72–85
[~2022-05-18] VITALS: Ht 160.2 cm; Wt 69.1 kg
[2022-05-18] MEDS ORDERED: LIDOCAINE/EPI 1%-1:100,000 (XYLOCAINE) 10 ML ONE (09:45)
[2022-05-18] MEDS ORDERED: 0.9% SODIUM CHLORIDE PF INJ 20 ML VIAL ONE (09:45)
[2022-05-18] MEDS ORDERED: HEParin (CENTRAL IV FLUSH) 500 UNIT/5 ML SYR ONE (09:46)
[2022-05-18] MEDS ORDERED: CLINDAMYCIN 600 MG/50 ML IVPB 50 ML IV ONE (10:00)
[2022-05-18] MEDS ORDERED: LACTATED RINGERS 1,000 ML IV PRN ×2 (10:00)
[2022-05-18] MEDS ORDERED: fentaNYL INJ 100 MCG/2 ML AMP ONE (10:37)
[2022-05-18] MEDS ORDERED: ONDANSETRON 4 MG/2 ML (SDV) Z0FRAN ONE (10:37)
[2022-05-18] MEDS ORDERED: PROPOFOL INJECTION 50 ML IV ONE (10:37)
[2022-05-18] MEDS ORDERED: MIDAZOLAM 2 MG/2 ML (VERSED) VIAL ONE (10:38)
--- NOTE | 2022-05-18 11:38 | Progress Note-Post Operative ---
Post-Operative Progess Note Surgeon (s)/Lanolin Plant Operator (s) Surgeon ERWIN BOYER DO Lanolin Plant Operator: ROMÁN Cohen Pre-Operative Diagnosis Breast CA, Venous Insufficiency Post-Operative Diagnosis same Procedure & Operative Findings Date of Procedure 05/18/22 Procedure Performed/Findings PROCEDURE: DEBRA-CATH insertion The patient was taken to the operating suite, was prepped and draped in the sterile fashion. A surgical pause was performed. Local anesthetic was infiltrated at the clavicle and along the tract to the right anterior chest, where more local was placed so the pocket could be created. Using an 18 gauge finder needle with negative inspiration the left subclavian vein was accessed on the first attempt and dark nonpulsatile blood was withdrawn. The wire was inserted and fluoroscopy assured proper placement. It appeared that the wire was in right atrium, attempted to move it with flouroscopy guidance and even tried doing a venogram. Unable to direct it into the Vena Cava, elected to leave it in the right atria. The needle was removed. The wire was then secured. A #11 blade scalpel was used to make an incision over the right chest and along guidewire. Cautery was used to dissect down to the pectoral fascia. A pocket was created with blunt dissection. The dilator sheath was then advanced over the wire under fluoroscopy and the dilator and wire were removed. The Groshong catheter was inserted through the sheath and the sheath was then removed. The Groshong wire was removed. The catheter was then tunneled to the right chest pocket. Fluoroscopy was used to cut to length and this was then attached to the port which was then placed within the pocket. The port was then accessed without difficulty. It was then flushed with saline and then heparin. The skin was closed with 4-0 undyed monocryl, 3 interrupted sutures. The areas were then washed and dried. Skin Affix was placed over incision. The insertion point of the neck Skin Affix was placed over the incision. The patient tolerated the procedure well without complication and was taken to recovery room in stable condition. Anesthesia Type IV sedation by OVENS SUPERVISOR Estimated Blood Loss Estimated blood loss (mL): less than 5ml Specimens/Packing Specimens Removed none ERWIN BOYER DO May 18, 2022 11:38
[2022-05-18] MEDS ORDERED: ACHD5005 PO ×2 (11:39→12:21)
--- NOTE | 2022-05-18 11:42 | Discharge Inst-Surgical ---
Discharge Inst-Surgical Depart Medication/Instructions New, Converted or Re-Newed RX: Transmitted to Pharmacy Patient Instructions Follow up Appt: Make appointment for 1 week. [phone] Instructions: No lifting greater than 20 pounds. No strenuous activity. May shower in 24 hours, no tub bath or soaking. Use incentive spirometer at home as directed. No Smoking Skin/Wound Care: May remove bandages in am. You need to leave the Dermabond on incision it will fall off on it's own. Symptoms to Report: Appetite Changes, Extremity Discoloration, Numbness/Tingling, Swelling Increased, Bleeding Excessive, Eyesight Changes, Pain Increased, Urine Color Change, Constipation(Persistent), Fever over 101 degree F, Pain/Pressure in chest, Urinating Difficulty, Cough Up/Vomit Blood, Heart Beat Irreg/Pounding, Pain/Pressure in jaw, Cramps in feet or legs, Lightheadedness, Pain/Pressure in shoulder, Diarrhea(Persistent), Memory Changes Suddenly, Questions/Concerns, Weight gain consecutive days, Dizziness/Fainting, Nausea/Vomiting, Shortness of Breath, Weight gain over 2 pounds If questions or concerns contact your physician Or seek help at emergency department. Activity Activity as Tolerated: Yes Activity Instructions: Avoid Stress to Incision Driving Instructions: No Driving/Refer to Dr. Marie Discharge Diet: No Restrictions Diet After 24 Hours: Clear Liquid if Nauseous If Any Problems/Questions/Issu: Contact Your Physician, Go to Emergency Room Skin/Wound Care Infection Signs and Symptoms: Increased Redness, Foul Odor of Wound, Increased Drainage, Skin Itchy or Has a Rash, Increased Swelling, Temperature Above 101 F Bathing Instructions: Shower Stitches/[place]/Dermabond Dis: Dermabond Ice Pack: Ice On and Off Site ERWIN BOYER DO May 18, 2022 11:42
--- NOTE | 2022-05-18 11:49 | Anesthesia-General Post-Op ---
MAC Patient Condition Mental Status/LOC: Same as Preop Cardiovascular: Satisfactory Nausea/Vomiting: Absent Respiratory: Satisfactory Pain: Controlled Complications: Absent Post Op Complications Complications None Follow Up Care/Instructions Patient Instructions None needed. Anesthesiology Discharge Order Discharge Order Patient is doing well, no complaints, stable vital signs, no apparent adverse anesthesia problems. No complications reported per nursing. SENAIT [place] CRNA May 18, 2022 11:49
[2022-05-18] MEDS ORDERED: morphine INJ 10 MG/ML 1ML (SYR OR VIAL) IVP ONE (12:00)
--- NOTE | 2022-05-18 15:49 | Diagnostic Imaging Report ---
INDICATION: Port-A-CATH placement. Operative guidance. COMPARISON: None available. IMPRESSION: 2 spot images are submitted and show left subclavian Port-A-Cath placement. Air Kerma is 894.93 mrad. Please see procedure report for more details. Dictated by: Dictated on workstation # [id number]
== END 2022-05-18 12:45 | disposition home or self-care (01) ==
LOC: SDC 09:37
PROVIDERS: ATTEND Surgery
DX: C50.911 Malignant neoplasm of unspecified site of right female breast (principal); I87.2 Venous insufficiency (chronic) (peripheral); C77.3 Secondary and unspecified malignant neoplasm of axilla and upper limb lymph nodes; Z28.310 Unvaccinated for COVID-19
CPT/HCPCS: 36561; 76000; 84703; 87081; C1788

== ENCOUNTER → 2022-05-20 | Outpatient (CLI) | payer BC | LOC: CARD 12:00 | PROVIDERS: ATTEND Internal Medicine Hematology & Oncology | DX: C50.911 Malignant neoplasm of unspecified site of right female breast (principal) | CPT/HCPCS: 93306 ==

== ENCOUNTER 2022-06-23 02:18 | Emergency (ER) | payer BC ==
[~2022-06-23] VITALS: Ht 160 cm; Wt 72.0 kg
[2022-06-23] MEDS ORDERED: NS IV 1000 ML 1,000 ML IV STA (02:32)
[2022-06-23 02:39] LABS: BASOPHILS # (AUTO) 0.1 10^3/uL (0.0-0.1); BASOPHILS % (AUTO) 0 % (0-10); EOSINOPHILS # (AUTO) 0.1 10^3/uL (0.0-0.3); EOSINOPHILS % (AUTO) 0 % (0-10); HEMATOCRIT 37 % (35-52); HEMOGLOBIN 12.7 g/dL (11.5-16.0); LYMPHOCYTES # (AUTO) 5.2 10^3/uL (1.0-4.0); LYMPHOCYTES % (AUTO) 17 % (12-44); MEAN CORPUSCULAR HEMOGLOBIN 30 pg (25-34); MEAN CORPUSCULAR HGB CONC 35 g/dL (32-36); MEAN CORPUSCULAR VOLUME 86 fL (80-99); MEAN PLATELET VOLUME 10.3 fL (9.0-12.2); MONOCYTES # (AUTO) 2.4 10^3/uL (0.0-1.0); MONOCYTES % (AUTO) 8 % (0-12); NEUTROPHILS # (AUTO) 19.1 10^3/uL (1.8-7.8); NEUTROPHILS % (AUTO) 63 % (42-75); PLATELET COUNT 187 10^3/uL (130-400)
[2022-06-23] MEDS ORDERED: ASPIRIN 81 MG CHEW (CHILDREN'S ASA) PO STA (02:40)
--- NOTE | 2022-06-23 02:40 | ED Chest Pain ---
General Chief Complaint: Chest Pain Stated Complaint: CHEST TIGHTNESS Source: patient Exam Limitations: no limitations History of Present Illness Date Seen by Provider: Jun 23, 2022 Time Seen by Provider: 02:20 Initial Comments Here with report of chest pain, palpitations and fast heart rate. This is been going on several hours tonight but is waxing and waning in intensity. 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 Last chemotherapy was 8 days ago. She follows with Dr. Tobias. Associated with chest pain and shortness of breath and feeling clammy. States that tonight that she had ate a little bit more than she normally does but there is just a little bit of rash otitis. She reports drinking okay. Denies difficulty with going to the bathroom. Denies other upper respiratory or constitutional symptoms. Timing/Duration: 4-6 hours, changing over time Severity/Quality: moderate, pressure Location: central Radiation: no radiation Activities at Onset: none Prior CP/Workup: no prior chest pain, echocardiography ASA po DRILL PRESSER: No NTG SL DRILL PRESSER: No Associated Symptoms: No back pain; diaphoresis; No fever/chills, No nausea/vomiting; shortness of breath, weakness Allergies and Home Medications Allergies Coded Allergies: clarithromycin (Unverified Allergy, Mild, HIVES, 05/03/22) Patient Home Medication List Home Medication List Reviewed: Yes Hydrocodone Bit/Acetaminophen (HYDROcodone/APAP 5 MG/325 MG TAB) 1 Tab Tab, 1 TAB PO Q8H PRN for PAIN-MODERATE (5-7) Prescribed by: ERWIN BOYER on 05/18/22 1222 Review of Systems Review of Systems Constitutional: see HPI; No chills, No fever EENTM: No Nose Congestion, No Throat Pain Respiratory: Denies Cough, Denies Shortness of Air Cardiovascular: Chest Pain; Denies Edema; Irregular Heart Rate, Ligh theadedness, Palpitations Gastrointestinal: Denies Nausea, Denies Vomiting Genitourinary: No Symptoms Reported Musculoskeletal: no symptoms reported Skin: no symptoms reported Psychiatric/Neurological: Anxiety, Paresthesia (Hands bilateral), Weakness All Other Systems Reviewed Negative Unless Noted: Yes Past Pysrwyk-Sseyto-Vgdiib Hx Patient Social History Tobacco Use?: No Use of E-Cig and/or Vaping dev: No Substance use?: No Alcohol Use?: No Immunizations Up To Date Tetanus Booster (TDap): Less than 5yrs Seasonal Allergies Seasonal Allergies: No Past Medical History Surgeries: No (D&C C/S X2) Adenoidectomy, Section, Tonsillectomy Respiratory: Yes (Hx exercise induced asthma) Asthma Currently Using CPAP: No Currently Using BIPAP: No Cardiac: No Neurological: Yes Headaches /Migraines Reproductive Disorders: No Sexually Transmitted Disease: Yes HIV/AIDS: No Genitourinary: Yes UTI-Chronic Gastrointestinal: No Musculoskeletal: No Chronic Back Pain Endocrine: No HEENT: Yes (CONTACTS/GLASSES) Loss of Vision: Bilateral Hearing Impairment: Denies Cancer: No Psychosocial: No Integumentary: No Blood Disorders: Yes (HX ANEMIA) Adverse Reaction/Blood Tranf: No (N/A) Family Medical History Reviewed Nursing Family Hx Physical Exam Vital Signs Vital Signs - First Documented 06/23/22 02:20 Temp 36.4 Pulse 142 Resp 22 B/P (MAP) 144/95 (111) Pulse Ox 95 O2 Delivery Room Air Capillary Refill : Height, Weight, BMI Height: 5'3.00" Weight: 165lbs. 0.4oz. 74.374186ve; 26.92 BMI Method: General Appearance: No Apparent Distress, WD/WN HEENT: PERRL/EOMI, Pharynx Normal Neck: Non Tender, Supple Respiratory: Lungs Clear, Normal Breath Sounds Cardiovascular: No Murmur, Tachycardia Gastrointestinal: Non Tender, Soft Extremity: Normal Range of Motion, Non Tender Neurologic/Psychiatric: Alert, Oriented x3 Skin: Warm/Dry, Cool Progress/Results/Core Measures Results/Orders Lab Results Laboratory Tests Test 06/23/22 02:25 06/23/22 03:00 Range/Units White Blood Count 30.6 *H 4.3-11.0 10^3/uL Red Blood Count 4.27 3.80-5.11 10^6/uL Hemoglobin 12.7 11.5-16.0 g/dL Hematocrit 37 35-52 % Mean Corpuscular Volume 86 80-99 fL Mean Corpuscular Hemoglobin 30 25-34 pg Mean Corpuscular Hemoglobin Concent 35 32-36 g/dL Red Cell Distribution Width 13.2 10.0-14.5 % Platelet Count 187 130-400 10^3/uL Mean Platelet Volume 10.3 9.0-12.2 fL Immature Granulocyte % (Auto) 12 % Neutrophils (%) (Auto) 63 42-75 % Lymphocytes (%) (Auto) 17 12-44 % Monocytes (%) (Auto) 8 0-12 % Eosinophils (%) (Auto) 0 0-10 % Basophils (%) (Auto) 0 0-10 % Neutrophils # (Auto) 19.1 H 1.8-7.8 10^3/uL Lymphocytes # (Auto) 5.2 H 1.0-4.0 10^3/uL Monocytes # (Auto) 2.4 H 0.0-1.0 10^3/uL Eosinophils # (Auto) 0.1 0.0-0.3 10^3/uL Basophils # (Auto) 0.1 0.0-0.1 10^3/uL Immature Granulocyte # (Auto) 3.8 H 0.0-0.1 10^3/uL Neutrophils % (Manual) 63 % Lymphocytes % (Manual) 21 % Monocytes % (Manual) 9 % Metamyelocytes % 2 % Band Neutrophils 5 % Microcytosis SLIGHT Sodium Level 138 135-145 MMOL/L Potassium Level 3.0 L 3.6-5.0 MMOL/L Chloride Level 101 98-107 MMOL/L Carbon Dioxide Level 26 21-32 MMOL/L Anion Gap 11 5-14 MMOL/L Blood Urea Nitrogen 11 7-18 MG/DL Creatinine 0.82 0.60-1.30 MG/DL Estimat Glomerular Filtration Rate 97 BUN/Creatinine Ratio 13 Glucose Level 116 H 70-105 MG/DL Calcium Level 9.0 8.5-10.1 MG/DL Corrected Calcium 9.1 8.5-10.1 MG/DL Magnesium Level 1.8 1.6-2.4 MG/DL Total Bilirubin 0.3 0.1-1.0 MG/DL Aspartate Amino Transf (AST/SGOT) 26 5-34 U/L Alanine Aminotransferase (ALT/SGPT) 57 H 0-55 U/L Alkaline Phosphatase 150 H 40-136 U/L Troponin I < 0.028 <0.028 NG/ML C-Reactive Protein High Sensitivity 1.04 H 0.00-0.50 MG/DL Total Protein 6.9 6.4-8.2 GM/DL Albumin 3.9 3.2-4.5 GM/DL TSH [place] Testing 2.78 0.35-4.94 UIU/ML Influenza Type A (RT-PCR) Detected H Not Detecte Influenza Type B (RT-PCR) Not Detected Not Detecte SARS-CoV-2 RNA (RT-PCR) Not Detected Not Detecte My Orders Orders - KAMRAN SCHULTZ MD Ekg Tracing (06/23/22 02:19) Cbc With Automated Diff (06/23/22 02:32) Comprehensive Metabolic Panel (06/23/22 02:32) Hs C Reactive Protein (06/23/22 02:32) Troponin I Mary (06/23/22 02:32) Ns Iv 1000 Ml (Sodium Chloride 0.9%) (06/23/22 02:32) Ed Iv/Invasive Line Start (06/23/22 02:32) Chest 1 View, Ap/Pa Only (06/23/22 02:32) Magnesium (06/23/22 02:32) Thyroid Analyzer (06/23/22 02:32) Aspirin Chewable Tablet (Baby Aspirin Ch (06/23/22 02:40) Manual Differential (06/23/22 02:25) Covid 19 Inhouse Test (06/23/22 03:02) Influenza A And B By Pcr (06/23/22 03:02) Ct Angio Chest W (06/23/22 03:05) Iohexol Injection (Omnipaque 350 Mg/Ml 1 (06/23/22 03:45) Sodium Chloride Flush (Catheter Flush Sy (06/23/22 03:45) Ns (Ivpb) (Sodium Chloride 0.9% Ivpb Bag (06/23/22 03:45) Rx-Oseltamivir Caps (Rx-Tamiflu Caps) (06/23/22 03:50) Medications Given in ED Current Medications Medications Dose Ordered Sig/Blair Route Start Time Stop Time Status Last Admin Dose Admin Iohexol 100 ml ONCE ONCE IV 06/23/22 03:45 06/23/22 03:46 DC 06/23/22 03:34 85 ML Sodium Chloride 10 ml NEEDED PRN IV 06/23/22 03:45 06/23/22 03:34 10 ML Sodium Chloride 100 ml ONCE ONCE IV 06/23/22 03:45 06/23/22 03:46 DC 06/23/22 03:34 80 ML Vital Signs/I&O 06/23/22 02:20 Temp 36.4 Pulse 142 Resp 22 B/P (MAP) 144/95 (111) Pulse Ox 95 O2 Delivery Room Air Progress Progress Note : Progress Note Seen and evaluated. IV, labs, EKG and chest x-ray. ASA 324 mg p.o. and normal saline 1 L bolus ordered. Anticipate CT angiogram of the chest to rule out PE given her history of cancer and tachycardia. Monitor patient. 0304: White count elevated at greater than 30. Chest x-ray negative. We will evaluate COVID and influenza screen. Monitor patient. CT angiogram of the chest ordered to rule out PE as patient is high risk for tachycardia and history of cancer. 0340: Patient noted to be influenza positive. Chest x-ray shows no acute findings. CT angiogram pending. 0438: We will do Rx pack for oseltamivir. CT negative for PE. Overall she is doing better after fluids. Discharged home with return precautions. Patient verbalized understand instructions and agreement with plan. I will send a copy of the chart to Dr. Candelario office. Initial ECG Impression Date: Jun 23, 2022 Initial ECG Impression Time: 02:27 Initial ECG Rate: 121 Initial ECG Rhythm: S.Tach Initial ECG Comparisson: No Previous ECG Available Comment Sinus tachycardia with far left axis deviation with left anterior fascicular block. No evidence of ST elevation ME. Interpreted by me. Diagnostic Imaging Diagonstic Imaging: Xray Plain Films/CT/US/NM/MRI: chest Comments No obvious infiltrate or other acute findings. Interpreted by me Reviewed: Reviewed by Me Diagonstic Imaging: CT Plain Films/CT/US/NM/MRI: chest Comments No evidence of pulmonary embolism. Mild right axillary lymphadenopathy measuring 1 cm in short axis. Mild splenomegaly measuring 13.1 cm in greatest dimension. Per stat rad radiology report. Reviewed by me. Reviewed: Reviewed [place] Study, Reviewed by Me Departure Impression Primary Impression: Influenza A Disposition: HOME, SELF-CARE Condition: Improved Departure-Patient Inst. Decision time for Depature: 04:39 Referrals: МАРИЯ MONTGOMERY,LOCAL PHYSICIAN (PCP) Primary Care Physician Patient Instructions: Flu, Adult (DC) Add. Discharge Instructions: All discharge instructions reviewed with patient and/or family. Voiced understanding. You have influenza A. You should follow-up with your oncologist office on Monday morning to let them know what is going on. Drink plenty of fluids and get plenty of rest. You may take Tylenol/acetaminophen 1000 mg every 6 hours as needed for fever or pain. You may take ibuprofen as needed for fever or pain as well if authorized by your doctor. Return for chest pain, weakness, breathing problems, vomiting or other concerns as needed. Copy Copies To 1: МАРИЯ MONTGOMERY TIMOTHY D MD Jun 23, 2022 02:40
[2022-06-23 02:45] LABS: ALBUMIN 3.9 GM/DL (3.2-4.5); CHLORIDE 101 MMOL/L (98-107); SODIUM 138 MMOL/L (135-145)
[2022-06-23 02:46] LABS: WHITE BLOOD COUNT 30.6 10^3/uL (4.3-11.0)
[2022-06-23 02:47] LABS: GLUCOSE 116 MG/DL (70-105); TOTAL PROTEIN 6.9 GM/DL (6.4-8.2)
[2022-06-23 02:48] LABS: CARBON DIOXIDE 26 MMOL/L (21-32)
[2022-06-23 02:49] LABS: BILIRUBIN,TOTAL 0.3 MG/DL (0.1-1.0)
[2022-06-23 02:51] LABS: ALKALINE PHOSPHATASE 150 U/L (40-136); CREATININE SERUM 0.82 MG/DL (0.60-1.30); GFR ESTIMATED 97
[2022-06-23 02:52] LABS: BUN/CREATININE RATIO 13
[2022-06-23 02:53] LABS: MAGNESIUM 1.8 MG/DL (1.6-2.4)
[2022-06-23 02:54] LABS: ALANINE AMINOTRANSFERASE 57 U/L (0-55)
[2022-06-23 03:14] LABS: TSH (THYROID ANALYZER) 2.78 UIU/ML (0.35-4.94)
[2022-06-23 03:20] LABS: BAND NEUTROPHILS 5 %; LYMPHOCYTES % (MANUAL) 21 %; METAMYELOCYTES % 2 %; MICROCYTOSIS SLIGHT; MONOCYTES % (MANUAL) 9 %; NEUTROPHILS % (MANUAL) 63 %
[2022-06-23] MEDS ORDERED: IOHEXOL 350 MG/ML 100 ML (OMNIPAQUE 350) VIAL IV ONE (03:45)
[2022-06-23] MEDS ORDERED: CATHETER FLUSH 10 ML SYR IV PRN (03:45)
[2022-06-23] MEDS ORDERED: NS 100 ML (IVPB) BAG IV ONE (03:45)
[2022-06-23] MEDS ORDERED: RX-OSELTAMIVIR 75 MG (TAMIFLU) BOX OF 10 PO STA (03:50)
[2022-06-23 04:58] VITALS: BP 115/76
--- NOTE | 2022-06-23 06:39 | Diagnostic Imaging Report ---
INDICATION: chest pain. TECHNIQUE: Single view chest 2:44 AM. CORRELATION STUDY: None FINDINGS: The heart size, mediastinal configuration and pulmonary vascularity are within normal limits. Left subclavian [id number]-Vnko catheter tip over the SVC. The lungs are clear with no consolidating infiltrate. There is no significant effusion or pneumothorax. IMPRESSION: 1. Negative appearing single view chest. Dictated by: Dictated on workstation # [id number]
--- NOTE | 2022-06-23 06:48 | Diagnostic Imaging Report ---
PROCEDURE: CT angiography of the chest with contrast. TECHNIQUE: Multiple contiguous axial images were obtained through the chest after uneventful bolus administration of intravenous contrast. 3D reconstructed CTA MIP acquisitions were also performed. Auto Exposure Controls were utilized during the CT exam to meet ALARA standards for radiation dose reduction. INDICATION: Dyspnea. COMPARISON: None. DISCUSSION: No pulmonary embolus identified. The thoracic aorta is normal in caliber and configuration. Normal heart size. No pleural or pericardial fluid. No consolidation or pulmonary lesion. The spleen is mildly enlarged measuring 13.1 cm. Prominent adenopathy noted within the right axilla, indeterminate. No osseous lesion. IMPRESSION: 1. No pulmonary embolus or other acute abnormality within the chest. 2. Mild spinal megaly. 3. Mildly prominent right axillary adenopathy of uncertain etiology. 4. Agree with preliminary report. Dictated by: Dictated on workstation # [id number]
== END 2022-06-23 05:00 | disposition home or self-care (01) ==
LOC: EDUNIT# 02:18 → ER 02:19
DX: J10.1 Influenza due to other identified influenza virus with other respiratory manifestations (principal); C50.919 Malignant neoplasm of unspecified site of unspecified female breast; Z20.822 Contact with and (suspected) exposure to COVID-19; Z28.310 Unvaccinated for COVID-19
CPT/HCPCS: 36415; 71045; 71275; 80053; 83735; 84443; 84484; 85007; 85027; 86141; 87636

== ENCOUNTER → 2022-07-22 | Outpatient (CLI) | payer BC ==
--- NOTE | 2022-07-22 11:51 | Diagnostic Imaging Report ---
INDICATION: Right breast carcinoma. Study is performed for followup. Correlation is made with prior ultrasound from 05/05/2022. Sonographic interrogation upper right breast was performed. There has been significant response to therapy. Previously noted lobulated solid mass at the 12 o'clock location is significantly reduced in size. There is now a hypoechoic nodule at this location measuring 1.0 x 0.5 x 0.8 cm compared with 1.3 x 1.4 x 1.4 cm. This almost appears cystic on today's study which may represent some necrosis. No internal vascularity is present. In addition, the enlarged lymph node in the right axilla has significantly reduced in size, now measuring 1.4 x 0.5 x 1.1 cm compared with 3.4 x 1.8 x 3.5 cm on prior. IMPRESSION: Significant reduction in size of the known right breast malignancy as well as metastatic right axillary lymph node when compared with exam from 05/05/2022. ACR BI-RADS Category 6: Known biopsy proven malignancy. Result letter will be mailed to the patient. Note: At least 10% of breast cancer is not imaged by mammography. BI-RADS Category 6 Dictated by: Dictated on workstation # [id number]
== END ==
LOC: RAD 10:06
PROVIDERS: ATTEND Internal Medicine Hematology & Oncology
DX: C50.911 Malignant neoplasm of unspecified site of right female breast (principal); C77.3 Secondary and unspecified malignant neoplasm of axilla and upper limb lymph nodes

== ENCOUNTER → 2022-08-17 | Outpatient (CLI) | payer BC | LOC: CARD 13:00 | PROVIDERS: ATTEND Nurse Practitioner Adult Health | DX: R00.0 Tachycardia, unspecified (principal); R06.02 Shortness of breath; Z51.12 Encounter for antineoplastic immunotherapy; C50.911 Malignant neoplasm of unspecified site of right female breast | CPT/HCPCS: 93306 ==

== ENCOUNTER → 2022-08-23 | Outpatient (CLI) | payer BC ==
[~2022-08-23] VITALS: Ht 160 cm; Wt 71.0 kg
[~2022-08-23] MED LIST changes: +CATHETER FLUSH 10 ML SYR IVP PRN; +REGADENOSON 0.4 MG/5 ML SYR (LEXISCAN) IV ONE
[2022-08-23 08:46] VITALS: BP 115/71
--- NOTE | 2022-08-23 19:33 | STRESS TEST ---
DATE OF SERVICE: 08/23/2022 RESTING AND POST REGADENOSON TECHNETIUM-99M TETROFOSMIN SPECT CT IMAGING ORDERING PHYSICIAN: Dr. Rivera. OTHER PHYSICIAN: Dr. Ledezma. CLINICAL DIAGNOSIS: Shortness of breath. Baseline images were carried out after injection of 10.14 mCi technetium-99m tetrofosmin. This was followed by 0.4 mg regadenoson and 30.7 mCi of technetium-99m tetrofosmin for stress imaging. The electrocardiogram showed sinus rhythm at baseline. There was incomplete right bundle branch block. The electrocardiogram did not change significantly with regadenoson infusion. The patient noted some headache, which resolved in a few minutes. Review of images at rest and following stress does not indicate any distinct perfusion defects consistent with significant myocardial ischemia or infarction. Some degree of breast attenuation is seen both at rest and following regadenoson infusion. Gated images show normal global left ventricular systolic function with normal regional wall motion, including the anterior wall of the left ventricle. Left ventricular ejection fraction is calculated to be 82%. CONCLUSIONS: 1. No evidence of any significant myocardial ischemia or infarction in this study. 2. Normal to hyperdynamic left ventricular systolic function without regional wall motion abnormality and with an ejection fraction of approximately 82%. Job ID: [id number] DocumentID: [id number] Dictated Date: 08/23/2022 16:26:27 Coatings Inspector Date: 08/23/2022 19:32:00 Dictated By: EYAL RIVERA MD; KEV; FACP; FACC;
== END ==
LOC: CARD 07:09
PROVIDERS: ATTEND Internal Medicine Cardiovascular Disease
DX: R07.89 Other chest pain (principal); R06.02 Shortness of breath
CPT/HCPCS: 78452; 93017; A9502

== ENCOUNTER → 2022-12-21 | Outpatient (CLI) | payer BC, OTHER ==
[~2022-12-21] MED LIST changes: -CATHETER FLUSH 10 ML SYR IVP PRN; -REGADENOSON 0.4 MG/5 ML SYR (LEXISCAN) IV ONE
== END ==
LOC: CARD 14:00
PROVIDERS: ATTEND Nurse Practitioner Adult Health
DX: C50.911 Malignant neoplasm of unspecified site of right female breast (principal); C77.8 Secondary and unspecified malignant neoplasm of lymph nodes of multiple regions; R00.0 Tachycardia, unspecified
CPT/HCPCS: 93306

== ENCOUNTER → 2023-03-16 | Outpatient (CLI) | payer MEDICAID, OTHER | LOC: CARD 08:30 | PROVIDERS: ATTEND Internal Medicine Hematology & Oncology | DX: Z51.12 Encounter for antineoplastic immunotherapy (principal); C50.911 Malignant neoplasm of unspecified site of right female breast; R00.0 Tachycardia, unspecified | CPT/HCPCS: 93306 ==